=== PATIENT | male | born 1950 | race African-American/Black ===

== ENCOUNTER 2016-11-12 17:59 | Emergency (ER) | payer OTHER ==
[~2016-11-12] VITALS: Ht 180.3 cm; Wt 76.2 kg
[~2016-11-12 17:59] MED LIST: PHEN32.49 PO
[2016-11-12 18:15] VITALS: BP 162/77
[2016-11-12] MEDS ORDERED: FLUORESCEIN SOD 1 MG TEST STRIP ONE (18:33)
[2016-11-12] MEDS ORDERED: TETRACAINE HCL 0.5% OPTH(EYE) SOLN 4ML ONE (18:33)
[2016-11-12] MEDS ORDERED: FLUORESCEIN SOD 1 MG TEST STRIP OP ONE (18:45)
[2016-11-12] MEDS ORDERED: TETRACAINE HCL 0.5% OPTH(EYE) SOLN 4ML LEFTEYE ONE (18:45)
== END 2016-11-12 18:59 | disposition home or self-care (01) ==
LOC: ER 18:02
DX: H16.3 Interstitial and deep keratitis (principal); E78.5 Hyperlipidemia, unspecified; F17.210 Nicotine dependence, cigarettes, uncomplicated; F12.10 Cannabis abuse, uncomplicated; F14.10 Cocaine abuse, uncomplicated; Z86.73 Personal history of transient ischemic attack (TIA), and cerebral infarction without residual deficits

== ENCOUNTER 2017-04-11 17:06 | Emergency (ER) | payer OTHER ==
[~2017-04-11] VITALS: Ht 182.9 cm; Wt 86.2 kg
[2017-04-11] MEDS ORDERED: THIAMINE HCL 100 MG/ML 2ML VIAL IM ONE (17:45)
[2017-04-11 18:11] VITALS: BP 136/70
== END 2017-04-11 19:56 | disposition home or self-care (01) ==
LOC: EDBD 17:06 → ER 17:09
DX: R51 Headache (principal); R53.1 Weakness; F10.10 Alcohol abuse, uncomplicated; E78.5 Hyperlipidemia, unspecified; F17.210 Nicotine dependence, cigarettes, uncomplicated; F12.10 Cannabis abuse, uncomplicated; F14.10 Cocaine abuse, uncomplicated; Z86.73 Personal history of transient ischemic attack (TIA), and cerebral infarction without residual deficits
CPT/HCPCS: 70450; 96372; 99284; J3411

== ENCOUNTER 2019-04-16 15:08 | Emergency (ER) | payer BC, OTHER ==
[~2019-04-16] VITALS: Ht 180.3 cm; Wt 72.6 kg
[2019-04-16 15:13] VITALS: BP 119/80
[2019-04-16 15:37] LABS: Basophils # (auto) 0.1 uL; Basophils % (auto) 0.8 % (0.0-2.0); Eosinophils # (auto) 0.2 uL; Eosinophils % (auto) 3.6 % (0.0-7.0); Hematocrit 51.7 % (41.0-53.0); Hemoglobin 17.3 g/dL (13.5-17.5); Lymphocytes # (auto) 1.9 uL; Lymphocytes % (auto) 27.6 % (10.0-50.0); Mean Corpuscular Hemoglobin 29.6 pg (28.0-32.0); Mean Corpuscular Hgb Conc. 33.5 g/dL (32.0-36.0); Mean Corpuscular Volume 88.2 fL (80.0-100.0); Monocytes # (auto) 0.8 uL; Monocytes % (auto) 11.2 % (0.0-12.0); Neutrophils # (auto) 3.9 uL; Neutrophils % (auto) 56.8 % (37.0-80.0); Nucleated Red Blood Cells % 0.1 %; Platelet Count (auto) 199 10^3/uL (140-450); Red Blood Cells 5.86 10^6/uL (4.5-5.90); Red Cell Distribution Width 13.9 % (11.8-14.3); White Blood Cell 6.9 10^3/uL (4.4-10.8)
[2019-04-16 16:12] LABS: Albumin 3.7 g/dL (3.4-5.0); Anion Gap 12 (5-15); BUN/Creatinine Ratio 5.4; Blood Urea Nitrogen 4 mg/dL (7-18); Calcium 9.3 mg/dL (8.5-10.1); Carbon Dioxide 21 mmol/L (21-32); Chloride 106 mmol/L (98-107); GFR African American 135 mL/min; GFR Non-African American 112 mL/min; Glucose 104 mg/dL (74-106); Sodium 139 mmol/L (136-145)
[2019-04-16] MEDS ORDERED: IOHEXOL 350 MG/ML 100ML IJ ONE (16:17)
[2019-04-16 16:21] LABS: Alanine Aminotransferase 79 U/L (16-61); Alkaline Phosphatase 87 U/L (45-117); Aspartate Aminotransferase 56 U/L (15-37); Bilirubin, Total 1.3 mg/dL (0.2-1.0); Total Protein 7.3 g/dL (6.4-8.2)
== END 2019-04-16 19:42 | disposition home or self-care (01) ==
LOC: ER 15:13
DX: K92.0 Hematemesis (principal); R51 Headache; F17.210 Nicotine dependence, cigarettes, uncomplicated; F12.10 Cannabis abuse, uncomplicated; F14.10 Cocaine abuse, uncomplicated; E78.5 Hyperlipidemia, unspecified; Z86.73 Personal history of transient ischemic attack (TIA), and cerebral infarction without residual deficits
CPT/HCPCS: 36415; 70450; 74176; 80053; 82140; 84484; 85025; 94761; 99284; Q9967

== ENCOUNTER 2019-10-15 11:22 | Emergency (ER) | payer BC, OTHER ==
[~2019-10-15] VITALS: Ht 180.3 cm; Wt 72.6 kg
[~2019-10-15 11:22] MED LIST changes: +PHEN32.44 PO; -PHEN32.49 PO
[2019-10-15 12:12] LABS: Basophils # (auto) 0 uL; Eosinophils # (auto) 0.1 uL; Lymphocytes # (auto) 1.6 uL; White Blood Cell 6.2 10^3/uL (4.4-10.8)
[2019-10-15 12:13] LABS: Basophils % (auto) 0.8 % (0.0-2.0); Eosinophils % (auto) 1.7 % (0.0-7.0); Hematocrit 52.6 % (41.0-53.0); Hemoglobin 17.5 g/dL (13.5-17.5); Lymphocytes % (auto) 26.5 % (10.0-50.0); Mean Corpuscular Hemoglobin 29.3 pg (28.0-32.0); Mean Corpuscular Hgb Conc. 33.3 g/dL (32.0-36.0); Mean Corpuscular Volume 88.1 fL (80.0-100.0); Monocytes # (auto) 0.8 uL; Monocytes % (auto) 12.3 % (0.0-12.0); Neutrophils # (auto) 3.6 uL; Neutrophils % (auto) 58.7 % (37.0-80.0); Nucleated Red Blood Cells % 0.1 %; Platelet Count (auto) 215 10^3/uL (140-450); Red Blood Cells 5.97 10^6/uL (4.5-5.90); Red Cell Distribution Width 12.8 % (11.8-14.3)
[2019-10-15 12:40] LABS: Albumin 3.3 g/dL (3.4-5.0); Anion Gap 9 (5-15); BUN/Creatinine Ratio 4.9; Blood Urea Nitrogen 4 mg/dL (7-18); Calcium 9.5 mg/dL (8.5-10.1); Carbon Dioxide 26 mmol/L (21-32); Chloride 101 mmol/L (98-107); GFR African American 120 mL/min; GFR Non-African American 99 mL/min; Glucose 146 mg/dL (74-106); Potassium 4.6 mmol/L (3.5-5.1); Sodium 136 mmol/L (136-145)
[2019-10-15 12:45] LABS: Alanine Aminotransferase 82 U/L (16-61); Alkaline Phosphatase 76 U/L (45-117); Aspartate Aminotransferase 41 U/L (15-37); Bilirubin, Total 2.2 mg/dL (0.2-1.0); Total Protein 7.6 g/dL (6.4-8.2)
[2019-10-15 12:46] LABS: INR 1.07 (0.9-1.15); Partial Thromboplastin Time 27.3 sec (23.64-32.05)
[2019-10-15] MEDS ORDERED: HYDROcodone-ACET 5/325MG TAB PO ONE (16:00)
[2019-10-15 16:30] VITALS: BP 119/77
== END 2019-10-15 16:33 | disposition home or self-care (01) ==
LOC: ER 11:22
DX: S20.211A Contusion of right front wall of thorax, initial encounter (principal); F17.210 Nicotine dependence, cigarettes, uncomplicated; E78.5 Hyperlipidemia, unspecified; W19.XXXA Unspecified fall, initial encounter; Y93.89 Activity, other specified; Y99.8 Other external cause status; Y92.89 Other specified places as the place of occurrence of the external cause
CPT/HCPCS: 36415; 71045; 80053; 84484; 85025; 85610; 85730; 93005

== ENCOUNTER → 2019-10-27 | Emergency (ER) | payer BC, OTHER ==
[~2019-10-27] VITALS: Ht 180.3 cm; Wt 79.4 kg
[~2019-10-27] MED LIST changes: +IBUPROFEN 800 MG TAB PO ONE; +cefTRIAXone SOD 1,000 MG VL IM ONE
[2019-10-27 17:36] VITALS: BP 146/88
== END | disposition home or self-care (01) ==
LOC: ER 17:12
DX: S20.211A Contusion of right front wall of thorax, initial encounter (principal); J02.9 Acute pharyngitis, unspecified; E78.5 Hyperlipidemia, unspecified; F17.210 Nicotine dependence, cigarettes, uncomplicated; W01.0XXA Fall on same level from slipping, tripping and stumbling without subsequent striking against object, initial encounter; Y93.89 Activity, other specified; Y92.89 Other specified places as the place of occurrence of the external cause; Y99.8 Other external cause status
CPT/HCPCS: 71101; 93005; 96372; 99283; J0696

== ENCOUNTER 2019-11-10 12:27 | Emergency (ER) | payer BC, OTHER ==
[~2019-11-10] VITALS: Ht 180.3 cm; Wt 72.6 kg
[~2019-11-10 12:27] MED LIST changes: -IBUPROFEN 800 MG TAB PO ONE; -cefTRIAXone SOD 1,000 MG VL IM ONE
[2019-11-10 12:38] VITALS: BP 165/75
[2019-11-10] MEDS ORDERED: ACETAMINOPHEN 500 MG TAB PO ONE (14:15)
== END 2019-11-10 15:13 | disposition home or self-care (01) ==
LOC: ER 12:29
DX: S22.058A Other fracture of T5-T6 vertebra, initial encounter for closed fracture (principal); E78.5 Hyperlipidemia, unspecified; F17.210 Nicotine dependence, cigarettes, uncomplicated; Z79.899 Other long term (current) drug therapy; X58.XXXA Exposure to other specified factors, initial encounter; Y93.89 Activity, other specified; Y92.89 Other specified places as the place of occurrence of the external cause; Y99.8 Other external cause status
CPT/HCPCS: 72070

== ENCOUNTER → 2020-05-27 | Emergency (ER) | payer BC, OTHER ==
[~2020-05-27] VITALS: Ht 180.3 cm; Wt 72.6 kg
--- NOTE | 2020-05-27 15:08 | NUR ---
Pt left AMA prior to completion of order.
[2020-05-27 15:57] VITALS: BP 128/64
== END | disposition home or self-care (01) ==
LOC: ER 12:22
DX: H57.12 Ocular pain, left eye (principal); E78.5 Hyperlipidemia, unspecified; H54.40 Blindness, one eye, unspecified eye; F17.210 Nicotine dependence, cigarettes, uncomplicated; Z86.73 Personal history of transient ischemic attack (TIA), and cerebral infarction without residual deficits; Z79.899 Other long term (current) drug therapy; Z88.8 Allergy status to other drugs, medicaments and biological substances
CPT/HCPCS: 70450

== ENCOUNTER 2020-06-01 11:56 | Emergency (ER) | payer BC, OTHER ==
[~2020-06-01] VITALS: Ht 180.3 cm; Wt 72.6 kg
[2020-06-01 14:01] VITALS: BP 123/91
[2020-06-01] MEDS ORDERED: TETRACAINE HCL 0.5% OPTH(EYE) SOLN 4ML LEFTEYE ONE (15:00)
== END 2020-06-01 16:17 | disposition home or self-care (01) ==
LOC: ER 11:56
DX: H57.12 Ocular pain, left eye (principal); H54.7 Unspecified visual loss; H53.142 Visual discomfort, left eye; F17.210 Nicotine dependence, cigarettes, uncomplicated; E78.00 Pure hypercholesterolemia, unspecified; Z86.73 Personal history of transient ischemic attack (TIA), and cerebral infarction without residual deficits; Z79.899 Other long term (current) drug therapy